=== PATIENT | female | born 1985 | race African-American/Black ===

== ENCOUNTER 2020-12-31 21:08 | Emergency (ER) | payer OTHER ==
[~2020-12-31 21:08] MED LIST: BENTYL10 MG PO; BUSPIRONE HCL15 MG PO; CYCLOBENZAPRINE10 MG PO; GLUCOPHAGE850 MG PO; KEFLEX500 MG PO; LAMICTAL100 MG PO; MACROBID100 MG PO; METFORMIN HCL500 MG PO; NORCO 5-325 TA1 EACH PO; NORVASC10 MG PO; NOVOLOG FL100 UNIT/1 SQ; ONDANSETRON ODT4 MG SL; PHENERGAN25 M1 PO; PREDNISONE20 MG PO; PRILOSEC20 MG PO; PROZAC40 MG PO; TRESIBA FL100 UNIT/1 SQ; VICTOZA 2-0.6 MG/0.1 SQ; XARELTO15 MG PO; ZESTORETIC 20-1 EAC1 PO; ZOFRAN4 MG PO; ZOFRAN8 MG PO
[2020-12-31 22:03] LABS: BASOPHIL 0.8 % (0-2); EOSINOPHIL 4.5 % (0-5); HCT 39.1 % (37.0-47.0); LYMPHOCYTE 31.3 % (15-48); MCH 30.1 pg (25.0-31.0); MCHC 35.8 g/dL (32.0-36.0); MCV 84.1 fL (78.0-100.0); MONOCYTE 6.9 % (0-12); MPV 10.7 fL (6.0-9.5); NEUTROPHIL 56.1 % (41-80); NRBC 0; PLT 478 K/uL (150-400); RBC 4.65 M/uL (4.20-5.40); RDW 12.9 % (11.5-14.0); WBC 15.4 K/uL (4.0-10.5)
[2020-12-31 22:16] LABS: ALBUMIN 3.8 g/dL (3.4-5.0); BILIRUBIN - TOTAL 0.6 mg/dL (0.2-1.0); CREATININE 0.93 mg/dL (0.51-0.95); GLOBULIN (CALCULATION) 4.2 g/dL; POTASSIUM 3.9 mmol/L (3.5-5.1)
[2021-01-01] MEDS ORDERED: PROTONIX 40MG T40 MG PO (01:50)
[2021-01-01] MEDS ORDERED: CARAFATE1 GM PO (01:50)
[2021-01-01] MEDS ORDERED: PHENERGAN12.5 M1 PO (01:50)
[2021-01-01] MEDS ORDERED: ONDANSETRON ODT4 MG SL (01:50)
[2021-01-01] MEDS ORDERED: NORCO 5-325 TA1 EACH PO (01:50)
== END 2021-01-01 02:04 | disposition home or self-care (01) ==
LOC: FER 21:08
PROVIDERS: Emergency Medicine Emergency Medical Services
DX: K29.00 Acute gastritis without bleeding (principal); R07.89 Other chest pain; I25.2 Old myocardial infarction; E11.9 Type 2 diabetes mellitus without complications; I10 Essential (primary) hypertension; E78.5 Hyperlipidemia, unspecified; Z98.890 Other specified postprocedural states; Z79.82 Long term (current) use of aspirin; Z79.02 Long term (current) use of antithrombotics/antiplatelets; Z79.899 Other long term (current) drug therapy
CPT/HCPCS: 36415; 71045; 80053; 83690; 84484; 85025; 85379; 93005; C9113; J2270; J2405; J7030

== ENCOUNTER 2021-03-16 08:33 | Emergency (ER) | payer OTHER ==
[~2021-03-16 08:33] MED LIST changes: +CARAFATE1 GM PO; +PHENERGAN12.5 M1 PO; +PROTONIX 40MG T40 MG PO
[2021-03-16 09:36] LABS: BASOPHIL 0.5 % (0-2); EOSINOPHIL 7.1 % (0-5); HCT 36.9 % (37.0-47.0); HGB 12.7 g/dl (12.5-16.0); LYMPHOCYTE 41.3 % (15-48); MCH 29.1 pg (25.0-31.0); MCHC 34.4 g/dL (32.0-36.0); MCV 84.6 fL (78.0-100.0); MONOCYTE 6.2 % (0-12); MPV 10.3 fL (6.0-9.5); NEUTROPHIL 44.5 % (41-80); NRBC 0; PLT 388 K/uL (150-400); RBC 4.36 M/uL (4.20-5.40); RDW 12.8 % (11.5-14.0)
[2021-03-16 09:40] LABS: WBC 11.3 K/uL (4.0-10.5)
[2021-03-16 09:58] LABS: ALBUMIN 3.2 g/dL (3.4-5.0); BILIRUBIN - TOTAL 0.3 mg/dL (0.2-1.0); BUN/CREAT RATIO (CALC) 22.5 RATIO; C-REACTIVE PROTEIN 2.3 mg/dL (<=0.90); CREATININE 0.8 mg/dL (0.51-0.95); GLOBULIN (CALCULATION) 4.6 g/dL; MAGNESIUM 1.4 mg/dL (1.8-2.4); POTASSIUM 4.1 mmol/L (3.5-5.1); TOTAL PROTEIN 7.8 g/dL (6.4-8.2)
[2021-03-16 10:06] LABS: PRO-BNP 83 pg/mL (<125)
[2021-03-16] MEDS ORDERED: TESSALON PERLE100 M1 PO (10:38)
[2021-03-16] MEDS ORDERED: MEDROL 4MG DOSEP4 MG PO (10:38)
[2021-03-16] MEDS ORDERED: VENTOLIN HFA18 GM INH (10:38)
[2021-03-16] MEDS ORDERED: CEFDINIR300 MG PO (10:38)
== END 2021-03-16 10:57 | disposition home or self-care (01) ==
LOC: FER 08:33
PROVIDERS: Emergency Medicine
DX: J41.1 Mucopurulent chronic bronchitis (principal); I11.0 Hypertensive heart disease with heart failure; I50.9 Heart failure, unspecified; I25.2 Old myocardial infarction; E11.9 Type 2 diabetes mellitus without complications
CPT/HCPCS: 36415; 71046; 80053; 82728; 83615; 83735; 83880; 84145; 84484; 85025; 86140; 93005; 94640; 94664

== ENCOUNTER 2021-06-15 23:16 | Emergency (ER) | payer OTHER ==
[~2021-06-15 23:16] MED LIST changes: +CEFDINIR300 MG PO; +MEDROL 4MG DOSEP4 MG PO; +TESSALON PERLE100 M1 PO; +VENTOLIN HFA18 GM INH
[2021-06-16 00:57] LABS: BILIRUBIN NEGATIVE (NEGATIVE); BLOOD NEGATIVE Ery/uL (NEGATIVE); CLARITY CLEAR (CLEAR); COLOR YELLOW (YELLOW); GLUCOSE (U) 3+ mg/dL (NORMAL); LEUKOCYTES NEGATIVE Leu/uL (NEGATIVE); NITRITE NEGATIVE (NEGATIVE); PROTEIN TRACE (LOW) mg/dL (NEGATIVE); SPECIFIC GRAVITY 1.015 (1.001-1.030); UROBILINOGEN 0.2 mg/dL (0.2-1.0)
== END 2021-06-16 01:40 | disposition home or self-care (01) ==
LOC: FER 23:16
PROVIDERS: Emergency Medicine
DX: M54.50 Low back pain, unspecified (principal); E11.9 Type 2 diabetes mellitus without complications; I10 Essential (primary) hypertension; Z90.49 Acquired absence of other specified parts of digestive tract
CPT/HCPCS: 81003; J1885